=== PATIENT | male | born 1960 ===

== ENCOUNTER 2021-01-22 19:22 | Emergency (ER) | payer OTHER ==
[~2021-01-22 19:22] MED LIST: FURO40TA5 PO; LACT10SO3 PO; SPIR50TA5 PO
--- NOTE | 2021-01-22 21:45 | NUR ---
Patient was called to be traiged but was not in waiting room.
--- NOTE | 2021-01-22 22:00 | NUR ---
Patient was called to be traiged but was not present in the waiting room.
--- NOTE | 2021-01-22 22:24 | NUR ---
Patient was called but was not present in the waiting room or outside of ER. PATIENT WAS NOT TRAIGED OR SEEN BY ER MD.
[2021-01-23] MEDS ORDERED: SULF1TAB48 PO (18:01)
[2021-01-23] MEDS ORDERED: CEPH500T PO (18:01)
[2021-01-23] MEDS ORDERED: HYDR-3980 PO (18:01)
== END 2021-01-22 22:26 | disposition left against medical advice (07) ==
LOC: ER 19:25
DX: Z53.21 Procedure and treatment not carried out due to patient leaving prior to being seen by health care provider (principal)

== ENCOUNTER 2021-01-23 17:14 | Emergency (ER) | payer OTHER ==
[~2021-01-23] VITALS: Ht 188 cm; Wt 91.6 kg
[2021-01-23] MEDS ORDERED: SULF1TAB48 PO (18:01)
[2021-01-23] MEDS ORDERED: HYDR-3980 PO (18:01)
[2021-01-23] MEDS ORDERED: CEPH500T PO (18:01)
--- NOTE | 2021-01-23 18:11 | NUR ---
Manager [employer] assumes care: (1st contact with patient) Patient is AOX4, for discharge by Dr Hong. Patient left ER in stable condition with his own crutches. Written and verbal after care instructions given to patient and family. Patient and family verbalized understanding and compliance of instructions. Stressed follow up with ortho doctor or return to ER for worsening s/s.
== END 2021-01-23 18:11 | disposition home or self-care (01) ==
LOC: ER 17:17
DX: L03.115 Cellulitis of right lower limb (principal); I10 Essential (primary) hypertension; M10.9 Gout, unspecified; S99.921S Unspecified injury of right foot, sequela; W18.42XS Slipping, tripping and stumbling without falling due to stepping into hole or opening, sequela
CPT/HCPCS: 73630; A4663

== ENCOUNTER 2021-06-10 20:11 | Emergency (ER) | payer OTHER ==
[~2021-06-10] VITALS: Ht 188 cm; Wt 91.6 kg
[~2021-06-10 20:11] MED LIST changes: +CEPH500T PO; +HYDR-3980 PO; +SULF1TAB48 PO
--- NOTE | 2021-06-10 20:35 | NUR ---
Dr. Rojas at bedside for MSE.
[2021-06-10] MEDS ORDERED: KETOROLAC TROMETHAMINE 60 MG INJ IM ONE (20:45)
[2021-06-10 21:03] LABS: MEAN CORPUSCULAR VOLUME 88.6 fL (73.0-96.2); PLATELET COUNT (AUTO) 254 K/uL (152-348)
[2021-06-10 21:09] LABS: CREATININE 0.7 mg/dL (0.6-1.3)
[2021-06-10 21:17] LABS: BILIRUBIN,DIRECT 0.1 mg/dL (0.0-0.2); BILIRUBIN,TOTAL 0.4 mg/dL (0.2-1.0)
--- NOTE | 2021-06-10 22:00 | NUR ---
Ultrasound at bedside.
[2021-06-11] MEDS ORDERED: IBUP-1955 PO (00:02)
[2021-06-11] MEDS ORDERED: FURO-152 PO (00:02)
--- NOTE | 2021-06-11 00:16 | NUR ---
Patient discharged to home in stable condition. Written and verbal after care instructions given. Patient verbalizes understanding of instructions. Stressed follow up or return to ER for worsening s/s. Patient out of ER with steady gait, no acute signs of distress, VSS, all belongings taken.
[2021-06-11 00:17] VITALS: BP 134/90
== END 2021-06-11 00:20 | disposition home or self-care (01) ==
LOC: ER 20:13
DX: M79.652 Pain in left thigh (principal); I10 Essential (primary) hypertension; K74.60 Unspecified cirrhosis of liver
CPT/HCPCS: 36415; 80048; 80076; 82550; 85025; 85730; 93971; 96372; 99284; J1885; A4663

== ENCOUNTER 2022-10-15 14:30 | Inpatient (IN) | payer OTHER ==
[~2022-10-15] VITALS: Ht 190.5 cm; Wt 97.5 kg
[~2022-10-15 14:30] MED LIST changes: +FURO-152 PO; +IBUP-1955 PO
[2022-10-15] MEDS ORDERED: ONDANSETRON 4 MG/2 ML VIAL IV ONE (15:45)
[2022-10-15] MEDS ORDERED: KETOROLAC TROMETHAMINE 15 MG INJ IVP ONE (15:45)
[2022-10-15] MEDS ORDERED: IV NORMAL SALINE 1000 ML BAG IV ONE (15:45)
[2022-10-15] MEDS ORDERED: MORPHINE SULFATE 4 MG/1 ML DISP.SYRIN IV ONE (15:45)
[2022-10-15] MEDS ORDERED: KETOROLAC TROMETHAMINE 15 MG INJ ONE (15:49)
[2022-10-15] MEDS ORDERED: ONDANSETRON 4 MG/2 ML VIAL ONE (15:49)
[2022-10-15] MEDS ORDERED: MORPHINE SULFATE 4 MG/1 ML DISP.SYRIN ONE (15:50)
[2022-10-15 16:08] LABS: HEMATOCRIT 47.2 % (36.7-47.1); MEAN CORPUSCULAR HEMOGLOBIN 29.4 uug (23.8-33.4); MEAN CORPUSCULAR VOLUME 89.5 fL (73.0-96.2); PLATELET COUNT (AUTO) 261 K/uL (152-348)
[2022-10-15 16:16] LABS: CREATININE 0.8 mg/dL (0.6-1.3); POTASSIUM 4.1 mmol/L (3.5-5.1)
[2022-10-15 16:21] LABS: BILIRUBIN,DIRECT 0.2 mg/dL (0.0-0.2); BILIRUBIN,TOTAL 0.5 mg/dL (0.2-1.0); TOTAL PROTEIN, SERUM 7.5 g/dL (6.4-8.2)
[2022-10-15] MEDS ORDERED: CEFTRIAXONE 1 G in IV DEXTROSE 5% 50 ML IV ONE (17:15)
[2022-10-15] MEDS ORDERED: VANCOMYCIN IV 1,000 MG in IV DEXTROSE 5% 250 ML IV ONE (17:15)
[2022-10-15] MEDS ORDERED: VANCOMYCIN IV 200 ML ONE (17:22)
[2022-10-15] MEDS ORDERED: CEFTRIAXONE /D5W 50ML IVPB **ER PYXIS IV ONE (17:22)
[2022-10-15] MEDS ORDERED: MORPHINE SULFATE 2 MG/1 ML DISP.SYRIN IV PRN (21:00)
[2022-10-15] MEDS ORDERED: MAGNESIUM HYDROXIDE 30 ML LIQUID UDC PO PRN (21:00)
[2022-10-15] MEDS ORDERED: ONDANSETRON 4 MG/2 ML VIAL IV PRN (21:00)
[2022-10-15] MEDS ORDERED: HYDROCODONE/APAP 10-325 MG TABLET PO PRN (21:00)
[2022-10-15] MEDS ORDERED: ACETAMINOPHEN 325 MG TABLET PO PRN (21:00)
[2022-10-15] MEDS: IV 1/2NS 1000 ML 1,000 ML IV PRN (22:11)
[2022-10-15 22:30] VITALS: BP 154/91; TEMP 97.7; O2SAT 97
[2022-10-16 04:09] VITALS: BP 136/85; TEMP 97.8; O2SAT 95
[2022-10-16] MEDS: HYDROCODONE/APAP 5-325MG TABLET PO PRN (06:00)
[2022-10-16] MEDS: PANTOPRAZOLE SODIUM 40 MG TABLET.DR PO SCH (06:04)
[2022-10-16 06:41] LABS: HEMATOCRIT 44.4 % (36.7-47.1); MEAN CORPUSCULAR HEMOGLOBIN 29.7 uug (23.8-33.4); MEAN CORPUSCULAR VOLUME 90.1 fL (73.0-96.2); PLATELET COUNT (AUTO) 171 K/uL (152-348)
[2022-10-16 07:00] LABS: CREATININE 0.8 mg/dL (0.6-1.3); MAGNESIUM 2.1 mg/dL (1.8-2.4); PHOSPHOROUS 3.2 mg/dL (2.5-4.9); POTASSIUM 4.6 mmol/L (3.5-5.1)
[2022-10-16] MEDS ORDERED: TAMS-3 PO (10:54)
[2022-10-16] MEDS ORDERED: VITA-287 PO (10:54)
[2022-10-16 11:12] VITALS: BP 146/85; TEMP 98.2; O2SAT 96
[2022-10-16 11:17] VITALS: BP 158/58; TEMP 98.4; O2SAT 97
[2022-10-16] MEDS: IV 1/2NS 1000 ML 1,000 ML IV PRN (12:38)
[2022-10-16 15:03] VITALS: BP 129/60; TEMP 98.2; O2SAT 100
[2022-10-16] MEDS: predniSONE 20 MG TABLET PO SCH (16:17)
[2022-10-16 20:00] VITALS: BP 135/75; TEMP 98.3; O2SAT 100
[2022-10-17 04:00] VITALS: BP 128/73; TEMP 97.6; O2SAT 95
[2022-10-17] MEDS: IV 1/2NS 1000 ML 1,000 ML IV PRN (04:20)
[2022-10-17] MEDS: PANTOPRAZOLE SODIUM 40 MG TABLET.DR PO SCH (06:17)
[2022-10-17] MEDS: HYDROCODONE/APAP 5-325MG TABLET PO PRN (07:02)
[2022-10-17] MEDS: predniSONE 20 MG TABLET PO SCH (08:00)
[2022-10-17 11:52] VITALS: BP 128/67; TEMP 98; O2SAT 97
== END 2022-10-17 15:00 | disposition home or self-care (01) | DRG 351 ==
LOC: ER 14:30 → MEDSURG3 17:00
DX: M10.062 Idiopathic gout, left knee (principal); K70.9 Alcoholic liver disease, unspecified; E78.5 Hyperlipidemia, unspecified; M54.12 Radiculopathy, cervical region; N18.9 Chronic kidney disease, unspecified; M17.12 Unilateral primary osteoarthritis, left knee; Z79.899 Other long term (current) drug therapy; I12.9 Hypertensive chronic kidney disease with stage 1 through stage 4 chronic kidney disease, or unspecified chronic kidney disease; R79.82 Elevated C-reactive protein (CRP)
CPT/HCPCS: 36415; 83605; 83735; 84100; 84550; 85025; 85651; 85730; 86140; 87040; 93005; A4663; G0378; J0696; J1885; J2270; J2405; J3370; J7040; J7512